=== PATIENT | male | born 1945 | race Caucasian/White ===

== ENCOUNTER 2021-06-02 09:40 | Emergency (ER) | payer BC ==
[~2021-06-02] VITALS: Ht 177.8 cm; Wt 93.0 kg
[2021-06-02] MEDS ORDERED: CRESTOR10 MG PO (10:25)
[2021-06-02] MEDS ORDERED: NITROSTAT0.4 M1 SUBQ (10:25)
[2021-06-02] MEDS ORDERED: EFFIENT10 MG PO (10:25)
[2021-06-02] MEDS ORDERED: ADULT LOW DOSE81 MG PO (10:26)
[2021-06-02] MEDS ORDERED: LUMIGAN2.5 M1 EA. EYE (10:26)
[2021-06-02] MEDS ORDERED: LORATIDINE 10 M10 M1 PO (10:27)
[2021-06-02 11:38] VITALS: BP 136/70
== END 2021-06-02 11:40 | disposition home or self-care (01) ==
LOC: ER 09:40
DX: R04.1 Hemorrhage from throat (principal); E78.00 Pure hypercholesterolemia, unspecified; Z79.82 Long term (current) use of aspirin; Z79.899 Other long term (current) drug therapy